=== PATIENT | male | born 1980 | race Caucasian/White ===

== ENCOUNTER 2017-06-03 15:57 | Emergency (ER) | payer OTHER ==
[~2017-06-03] VITALS: Ht 172.7 cm; Wt 93.0 kg
--- NOTE | 2017-06-03 16:50 | NUR ---
DR CORDOBA AT THE BEDSIDE FOR EVAL AND EXAM.
--- NOTE | 2017-06-03 17:08 | NUR ---
Pt out of ER for CT.
[2017-06-03 17:24] VITALS: BP 123/73
--- NOTE | 2017-06-03 17:24 | NUR ---
Patient discharged to home in stable conditon. Written and verbal after care instructions given. Patient verbalizes understanding of instructions.
== END 2017-06-03 17:25 | disposition home or self-care (01) ==
LOC: ER 15:59
DX: G44.209 Tension-type headache, unspecified, not intractable (principal)
CPT/HCPCS: 70450; A4663